=== PATIENT | male | born 1960 ===

== ENCOUNTER 2017-03-18 11:04 | Day surgery (SDC) | payer MEDICAID ==
[2017-03-18 12:03] VITALS: BMI 27.4
[2017-03-18] MEDS ORDERED: Albuterol HFA 90 mcg/actuation (8 g) ONE (14:15)
[2017-03-18] MEDS ORDERED: Propofol 10 mg/ml Inj (20 ML) ONE (14:15)
[2017-03-18 15:16] VITALS: O2SAT 99
[2017-03-18 15:45] VITALS: BP 136/88; PULSE 57; RESP 13; TEMP 97.6
== END 2017-03-18 15:43 | disposition home or self-care (01) ==
LOC: C.ENDO 11:04
PROVIDERS: ATTEND Internal Medicine Gastroenterology
DX: K29.50 Unspecified chronic gastritis without bleeding (principal); K44.9 Diaphragmatic hernia without obstruction or gangrene; R10.13 Epigastric pain; I10 Essential (primary) hypertension; J45.909 Unspecified asthma, uncomplicated; M19.90 Unspecified osteoarthritis, unspecified site
CPT/HCPCS: 43239; 88305; 88313; 88342; J2704